=== PATIENT | male | born 1960 | race Two or more races ===

== ENCOUNTER → 2018-05-01 | Outpatient (CLI) | payer BC, OTHER ==
[~2018-05-01] MED LIST: LISI-167 PO; METF10002 PO
== END | disposition home or self-care (01) ==
LOC: CFH 10:53
PROVIDERS: ATTEND Internal Medicine
DX: K80.20 Calculus of gallbladder without cholecystitis without obstruction (principal); K74.60 Unspecified cirrhosis of liver; K70.10 Alcoholic hepatitis without ascites
CPT/HCPCS: 76700

== ENCOUNTER → 2019-08-06 | Outpatient (CLI) | payer BC, OTHER | END | disposition home or self-care (01) | LOC: CFH 10:01 | PROVIDERS: ATTEND Internal Medicine | DX: K80.20 Calculus of gallbladder without cholecystitis without obstruction (principal); K70.30 Alcoholic cirrhosis of liver without ascites; K76.0 Fatty (change of) liver, not elsewhere classified | CPT/HCPCS: 76700 ==